=== PATIENT | male | born 1945 | race Two or more races ===

== ENCOUNTER → 2017-06-09 | Day surgery (SDC) | payer BC ==
[~2017-06-09] MED LIST: LIDOCAINE 1% PF 2 ML VIAL. ID; LIDOCAINE 2% PF Vial for OR 5 ML VIAL.; MORPHINE SULFATE 4 MG/ML DISP.SYRIN. IV; ONDANSETRON PF 4 MG/2 ML VIAL. IV; PROCHLORPERAZINE 10 MG/2 ML VIAL. IV; PROPOFOL 20 ML IV; fentaNYL PF VIAL 100 MCG/2 ML VIAL IV
[2017-06-09] MEDS: IV RINGERS,LACTATED 1000ML 1,000 ML IV (09:42)
== END | disposition home or self-care (01) ==
LOC: SURG 09:18
DX: K52.9 Noninfective gastroenteritis and colitis, unspecified (principal); Z98.49 Cataract extraction status, unspecified eye
CPT/HCPCS: 45378; 45380; 88305; J2704